=== PATIENT | male | born 1935 | race Caucasian/White ===

== ENCOUNTER 2017-02-22 17:43 | Emergency (ER) | payer MEDICARE, OTHER ==
--- NOTE | 2017-02-22 18:30 | EDM.PDOC ---
ED HPI GENERAL MEDICAL PROBLEM - General Chief Complaint: Head Injury Stated Complaint: LACERATION TO FOREHEAD Time Seen by Provider: 02/22/17 18:00 Source of Information: Reports: Patient, [facility] Records History Limitations: Reports: No Limitations - History of Present Illness INITIAL COMMENTS - FREE TEXT/NARRATIVE: 81 YO WM presents to ER from custodial after a fall from a seated position. Pt was in a lift chair and while it was raising up, he fell forward landing on his face. Pt complaining of nasal pain and a 2cm vertical laceration to his mid forehead. Pt denies any headache or neck pain. Pt denies any other injury. caregiver denies loss of consciousness and fall was witnessed. Onset: Today Onset Date: 02/22/17 Onset Time: 17:00 Duration: Hour(s): (1) Location: Reports: Head, Face. Denies: Neck Quality: Reports: Ache Severity: Mild Improves with: Reports: None Worsens with: Reports: None Associated Symptoms: Reports: No Other Symptoms - Related Data Allergies Allergy/AdvReac Type Severity Reaction Status Date / Time No Known Drug Allergies Allergy Cannot Verified 08/24/16 13:33 Remember Home Meds: Home Meds Carbidopa/Levodopa [Carbidopa-Levodopa 25-100 Tab] 1 each PO QID 12/18/13 [ History] Tamsulosin [Flomax] 0.8 mg PO PCBRK #90 cap.er 10/12/14 [Rx] Multivitamin W/Iron, Minerals [Spectravite Senior] 1 tab PO DAILY 11/30/14 [ History] Sertraline [Zoloft] 75 mg PO DAILY 11/30/14 [History] Get Ointment 1 applic TOP BID PRN 12/15/14 [History] Sennosides/Docusate Sodium [Senna S Tablet] 1 each PO BID 12/15/14 [History] Acetaminophen 325 - 650 mg PO Q4HR PRN 03/18/15 [History] Nystatin 1 applic TOP DAILY 03/18/15 [History] Past Medical History Other Genitourinary History: supra pubic catheter Social & Family History - Tobacco Use Smoking Status *Q: Never Smoker Second Hand Smoke Exposure: No - Alcohol Use Days Per Week of Alcohol Use: 0 - Recreational Drug Use Recreational Drug Use: No ED ROS GENERAL - Review of Systems Review Of Systems: See Below Constitutional: Reports: No Symptoms HEENT: Reports: Nose Pain Respiratory: Reports: No Symptoms Cardiovascular: Reports: No Symptoms Endocrine: Reports: No Symptoms GI/Abdominal: Reports: No Symptoms : Reports: No Symptoms Musculoskeletal: Reports: No Symptoms Skin: Reports: Wound (mid forehead 2cm vertical laceration) Neurological: Reports: No Symptoms Psychiatric: Reports: No Symptoms Hematologic/Lymphatic: Reports: No Symptoms Immunologic: Reports: No Symptoms ED EXAM, HEAD INJURY - Physical Exam Exam: See Below Exam Limited By: No Limitations General Appearance: Alert, WD/WN, No Apparent Distress Head: Normocephalic, Facial Lacerations (2cm vertical mid forehead laceration). No: Scalp Lacerations, Scalp Abrasions, Scalp Ecchymosis Nexus Criteria: No: Posterior, Midline Cervical Tenderness, Evidence of Intoxication, Altered Level of Consciousness, Focal Neurological Deficit, Painful Distraction Injuries Ears: Normal External Exam, Normal Canal, Hearing Grossly Normal, Normal TMs Nose: Nasal Swelling, Nasal Tenderness. No: Nasal Deformity, Nasal Discharge, Nasal Ecchymosis, Active Bleeding Throat/Mouth: Normal Inspection, Normal Lips, Normal Teeth, Normal Gums, Normal Oropharynx, Normal Voice, No Airway Compromise Neck: Non-Tender, Full Range of Motion, Normal Alignment, Normal Inspection Respiratory: No Respiratory Distress, Lungs Clear, Normal Breath Sounds, No Accessory Muscle Use, Chest Non-Tender Cardiovascular: Normal Peripheral Pulses, Regular Rate, Rhythm, No Edema, No Gallop, No JVD, No Murmur, No Rub Back Exam: Full Range of Motion, Normal Inspection, NT Extremities: No Evidence of Injury, Normal Range of Motion, Non-Tender, No Pedal Edema Neurologic: mainframe systems administrator II-XII nml As Tested, No Motor/Sensory Deficits, Alert, Oriented x 3, Depressed Affect - [place] Coma Score Best Eye Response (Riccardo): (4) Open Spontaneously Best Verbal Response ([place]): (5) Oriented Best Motor Response ([place]): (6) Obeys Commands ED LACERATION/WOUND & CATHERINE PROC - Laceration/Wound Repair Middle Forehead Lac/wound length in cm: 2 Appearance: Superficial, Clean Distal NVT: Neuro & Vascular Intact Skin Prep: Providone-Iodine (Betadine), Saline Closed with: Dermabond Sterile Dressing Applied: None Tetanus Status Addressed: Yes Complications: No Course - Orders/Labs/Meds Orders: Active Orders 24 hr Category Date Time Status Skin Adhesive [RC] STAT Care 02/22/17 18:31 Ordered Head wo Cont [CT] Routine Exams 02/22/17 Taken Nasal Bone Min 3V [CR] Stat Exams 02/22/17 18:29 Ordered - Radiology Interpretation Free Text/Narrative:: nasal series- nondisplaced nasal bone fracture ct head- NAD Departure - Departure Time of Disposition: 19:15 Disposition: Home, Self-Care 01 Condition: good Clinical Impression: Head injury Qualifiers: Encounter type: initial encounter Qualified Code(s): S09.90XA - Unspecified injury of head, initial encounter Nasal bone fracture Qualifiers: Encounter type: initial encounter Fracture type: closed Qualified Code(s): S02.2XXA - Fracture of nasal bones, initial encounter for closed fracture Facial laceration Qualifiers: Encounter type: initial encounter Qualified Code(s): S01.81XA - Laceration without foreign body of other part of head, initial encounter - Discharge Information Instructions: Stitches, [place], or Adhesive Wound Closure, [id number], Laceration Care, Adult, [id number], Head Injury, Adult, Nasal Fracture Referrals: Hui Amezcua MD [Primary Care Provider] - - My Orders Last 24 Hours: My Active Orders 02/22/17 Head wo Cont [CT] Routine 02/22/17 18:29 Nasal Bone Min 3V [CR] Stat 02/22/17 18:31 Skin Adhesive [RC] STAT - Assessment/Plan Last 24 Hours: My Active Orders 02/22/17 Head wo Cont [CT] Routine 02/22/17 18:29 Nasal Bone Min 3V [CR] Stat 02/22/17 18:31 Skin Adhesive [RC] STAT Assessment:: 1. fall at home with risk for falls due to Parkinson's 2. 2cm forehead laceration 3. minor head injury 4. nasal bone injury Plan: 1. discharge home/custodial 2. dermabond to forehead laceration- given wound care instructions 3. nasal bone injury- follow up with PCP for further evaluation and treatment- ice, avoid additional trauma to nose 4. given head injury precautions 5. return to ER for worsening symptoms
[2017-02-22 19:46] VITALS: BP 166/65
== END 2017-02-22 19:30 | disposition home or self-care (01) ==
LOC: KA.ED 17:43
DX: S02.2XXA Fracture of nasal bones, initial encounter for closed fracture (principal); S01.81XA Laceration without foreign body of other part of head, initial encounter; W19.XXXA Unspecified fall, initial encounter; Y92.129 Unspecified place in nursing home as the place of occurrence of the external cause; Z79.899 Other long term (current) drug therapy
CPT/HCPCS: 12011; 70160; 70450; 99283; 99284

== ENCOUNTER 2017-09-26 11:53 | Emergency (ER) | payer MEDICARE, OTHER ==
--- NOTE | 2017-09-26 12:10 | EDM.PDOC ---
ED HPI GENERAL MEDICAL PROBLEM - General Chief Complaint: Head Injury Stated Complaint: LACERATION TO RIGHT EAR FOLLOWING FALL Time Seen by Provider: 09/26/17 12:04 Source of Information: Reports: Patient History Limitations: Reports: No Limitations - History of Present Illness Onset: Today, Sudden Onset Date: 09/26/17 Onset Time: 10:40 Location: Reports: Head Quality: Reports: Ache Severity: Mild Improves with: Reports: None Worsens with: Reports: None Context: Reports: Trauma Associated Symptoms: Reports: Other (NECK PAIN) - Related Data Allergies Allergy/AdvReac Type Severity Reaction Status Date / Time No Known Drug Allergies Allergy Cannot Verified 09/26/17 12:15 Remember Home Meds: Home Meds Carbidopa/Levodopa [Carbidopa-Levodopa 25-100 Tab] 1 each PO QID 12/18/13 [ History] Multivitamin W/Iron, Minerals [Spectravite Senior] 1 tab PO DAILY 11/30/14 [ History] Sertraline [Zoloft] 100 mg PO DAILY 11/30/14 [History] Get Ointment 1 applic TOP BID PRN 12/15/14 [History] Sennosides/Docusate Sodium [Senna S Tablet] 1 each PO BID 12/15/14 [History] Acetaminophen 325 - 650 mg PO Q4HR PRN 03/18/15 [History] Nystatin 1 applic TOP TID PRN 03/18/15 [History] Acetaminophen [Tylenol] 650 mg PO Q4HR PRN 02/22/17 [History] Dextromethorphan/guaiFENesin [Mucinex DM ER 600-30 MG] 1 tab PO Q12HR PRN [History] Donepezil HCl [Aricept] 10 mg PO DAILY 02/22/17 [History] guaiFEN/Phenyleph/Acetaminophn [Tylenol Sinus Severe Caplet] 1 tab PO Q6HR PRN 02/22/17 [History] Past Medical History Other Genitourinary History: supra pubic catheter Social & Family History - Tobacco Use Smoking Status *Q: Never Smoker Second Hand Smoke Exposure: No - Alcohol Use Days Per Week of Alcohol Use: 0 - Recreational Drug Use Recreational Drug Use: No ED ROS GENERAL - Review of Systems Review Of Systems: ROS reveals no pertinent complaints other than HPI. Constitutional: Reports: No Symptoms HEENT: Reports: No Symptoms Respiratory: Reports: No Symptoms Cardiovascular: Reports: No Symptoms Endocrine: Reports: No Symptoms GI/Abdominal: Reports: No Symptoms : Reports: No Symptoms Musculoskeletal: Reports: No Symptoms Skin: Reports: Wound (RIGHT EAR LACERATION) Neurological: Reports: No Symptoms, Other (BASELINE DEMENTIA) Psychiatric: Reports: Confusion Hematologic/Lymphatic: Reports: No Symptoms Immunologic: Reports: No Symptoms ED EXAM, HEAD INJURY - Physical Exam Exam: See Below Exam Limited By: No Limitations General Appearance: Alert, WD/WN, No Apparent Distress Head: Other (RIGHT EAR LACERATION) Nexus Criteria: No: Posterior, Midline Cervical Tenderness, Evidence of Intoxication, Altered Level of Consciousness, Focal Neurological Deficit, Painful Distraction Injuries Eyes: Bilateral Eye: Normal Inspection Ears: Normal Canal, Normal TMs, Mastoid Tenderness Nose: Normal Inspection, No Blood Throat/Mouth: Normal Inspection, Normal Oropharynx, No Airway Compromise Neck: Limited Range of Motion (OF CHRONIC NATURE), Tender Lateral Respiratory: No Respiratory Distress, Lungs Clear Cardiovascular: Regular Rate, Rhythm Back Exam: Normal Inspection Extremities: Normal Inspection Neurologic: Normal Mood/Affect Skin: Normal Color, Warm/Dry - [place] Coma Score Best Eye Response (Riccardo): (4) Open Spontaneously Best Verbal Response ([place]cardo): (4) Confused Conversation Best Motor Response ([place]): (6) Obeys Commands ED LACERATION/WOUND & CATHERINE PROC - Laceration/Wound Repair Right Ear Lac/wound length in cm: 6 Appearance: Subcutaneous Distal NVT: Neuro & Vascular Intact Anesthetic Type: Local Local Anesthesia - Lidocaine (Xylocaine): 1% Plain Local Anesthetic Volume: 3cc Skin Prep: Providone-Iodine (Betadine) Closed with: Sutures Suture Size: 4-0 Suture Type: Nylon, Interrupted Suture Size: 4-0 Repaired with: Vicryl Course - Vital Signs Last Recorded V/S: Last Vital Signs Temp 98.8 F 09/26/17 12:26 Pulse 70 09/26/17 12:26 Resp 18 09/26/17 12:26 BP 160/73 H 09/26/17 12:26 Pulse Ox - Orders/Labs/Meds Orders: Active Orders 24 hr Category Date Time Status Vaccines to be Administered [RC] PER UNIT ROUTINE Care 09/26/17 12:05 Active Cervical Spine wo Cont [CT] Stat Exams 09/26/17 12:04 Taken Meds: Medications Discontinued Medications Generic Name Dose Route Start Last Admin Trade Name Hong PRN Reason Stop Dose Admin Diphtheria/Tetanus/Acell Pertussis 0.5 ml 09/26/17 12:04 09/26/17 13:08 Adacel IM 09/26/17 12:05 0.5 ml .ONCE ONE Administration Lidocaine HCl 5 ml 09/26/17 12:05 09/26/17 13:12 Xylocaine-Mpf 1% INJECT 09/26/17 12:06 5 ml ONETIME ONE Administration Neomycin/Polymyxin/Bacitracin Confirm 09/26/17 13:46 Triple Antibiotic Oint Administered 09/26/17 13:47 Dose 1 each .ROUTE .[facility] ONE - Radiology Interpretation Free Text/Narrative:: CT CERVICAL SPINE AND MASTOID SHOWED NO ACUTE FRACTURE. CT Results Date: 09/26/17 - Re-Assessments/Exams Free Text/Narrative Re-Assessment/Exam: 09/26/17 13:50 PATIENT AFEBRILE, NONTOXIC APPEARING, VITAL SIGNS STABLE. TOLERATED PROCEDURE WELL. STAFF FROM NURSING FACILITY WILL TRANSPORT PATIENT Departure - Departure Time of Disposition: 13:52 Disposition: Home, Self-Care 01 Condition: Good Clinical Impression: Laceration of auricle of right ear - Discharge Information Instructions: Head Injury, Adult, [id number], Laceration Care, Adult Referrals: Hui Amezcua MD [Primary Care Provider] - Forms: ED Department Discharge Additional Instructions: SUTURES TO BE REMOVED IN 10 DAYS. RETURN TO EMERGENCY DEPARTMENT SOONER IF SYMPTOMS WORSEN. - My Orders Last 24 Hours: My Active Orders 09/26/17 12:04 Cervical Spine wo Cont [CT] Stat 09/26/17 12:05 Vaccines to be Administered [RC] PER UNIT ROUTINE - Assessment/Plan Last 24 Hours: My Active Orders 09/26/17 12:04 Cervical Spine wo Cont [CT] Stat 09/26/17 12:05 Vaccines to be Administered [RC] PER UNIT ROUTINE Assessment:: RIGHT EAR LACERATION REPAIR Plan: SUTURES TO BE REMOVED IN 10 DAYS
[2017-09-26 12:48] VITALS: BP 160/73
[2017-09-26] MEDS: Diphtheria,Pertussis(Acell),Tetanus Vaccine 0.5 ML SDV IM ONE (13:08)
[2017-09-26] MEDS: Bacitracin/Neomycin/Polymyxin B Oint 0.9 GM U/D Packet TOP ONE (13:55)
[2017-09-26] MEDS: Bacitracin/Neomycin/Polymyxin B Oint 0.9 GM U/D Packet ONE (14:02)
== END 2017-09-26 14:00 | disposition home or self-care (01) ==
LOC: KA.ED 11:53
DX: S01.311A Laceration without foreign body of right ear, initial encounter (principal); Z23 Encounter for immunization; W17.89XA Other fall from one level to another, initial encounter
CPT/HCPCS: 12011; 12014; 72125; 90471; 90715; 99283; 99284

== ENCOUNTER 2019-03-10 21:50 | Emergency (ER) | payer MEDICARE, OTHER ==
--- NOTE | 2019-03-10 22:37 | EDM.PDOC ---
ED HPI GENERAL MEDICAL PROBLEM - General Chief Complaint: General Stated Complaint: SUPRAPUBIC CATHETER PLACEMENT Time Seen by Provider: 03/10/19 22:00 Source of Information: Reports: Long-Term Records, Other (caregiver) History Limitations: Reports: Other (Advanced dementia) - History of Present Illness INITIAL COMMENTS - FREE TEXT/NARRATIVE: 83 YO WM presents to ER with caregiver secondary to a malfunctioning suprapubic catheter. assisted reports catheter was last changed 3 weeks ago. Pt without complaints and resting comfortably in exam room. Caregiver denies fever/ chills, nausea/vomiting or change in patients behavior. Onset: Unknown/Unsure Improves with: Reports: None Worsens with: Reports: None Associated Symptoms: Reports: No Other Symptoms - Related Data Allergies Allergy/AdvReac Type Severity Reaction Status Date / Time No Known Drug Allergies Allergy Cannot Verified 09/26/17 12:15 Remember Home Meds: Home Meds Carbidopa/Levodopa [Carbidopa-Levodopa 25-100 Tab] 1 each PO QID 12/18/13 [ History] Multivit with Iron,Minerals [Spectravite Senior] 1 tab PO DAILY 11/30/14 [ History] Sertraline [Zoloft] 100 mg PO DAILY 11/30/14 [History] Get Ointment 1 applic TOP BID PRN 12/15/14 [History] Sennosides/Docusate Sodium [Senna-S Tablet] 1 each PO BID 12/15/14 [History] Nystatin 1 applic TOP TID PRN 03/18/15 [History] Acetaminophen [Tylenol] 650 mg PO Q4HR PRN 02/22/17 [History] Dextromethorphan/guaiFENesin [Mucinex DM ER 600-30 MG] 1 tab PO Q12HR PRN [History] Donepezil HCl [Aricept] 10 mg PO DAILY 02/22/17 [History] guaiFEN/Phenyleph/Acetaminophn [Tylenol Sinus Severe Caplet] 1 tab PO Q6HR PRN 02/22/17 [History] Cephalexin [Keflex] 500 mg PO TID #21 cap 09/26/17 [Rx] Past Medical History HEENT History: Reports: Other (See Below) Other HEENT History: Ear Laceration- reason for visit today Genitourinary History: Reports: Retention, Urinary Other Genitourinary History: supra pubic catheter Musculoskeletal History: Reports: Osteoarthritis Neurological History: Reports: Parkinson's Psychiatric History: Reports: Dementia - Infectious Disease History Infectious Disease History: Reports: MRSA - Past Surgical History HEENT Surgical History: Reports: None Social & Family History - Family History Family Medical History: Noncontributory - Caffeine Use Caffeine Use: Reports: Coffee ED ROS GENERAL - Review of Systems Review Of Systems: See Below Constitutional: Reports: No Symptoms HEENT: Reports: No Symptoms Respiratory: Reports: No Symptoms Cardiovascular: Reports: No Symptoms Endocrine: Reports: No Symptoms GI/Abdominal: Reports: No Symptoms Skin: Reports: No Symptoms Hematologic/Lymphatic: Reports: No Symptoms Immunologic: Reports: No Symptoms ED EXAM, GENERAL - Physical Exam Exam: See Below Exam Limited By: Other (advanced dementia) Eye Exam: Bilateral Eye: PERRL Nose: Normal Inspection, Normal Mucosa, No Blood Throat/Mouth: Normal Inspection, Normal Lips, Normal Teeth, Normal Gums, Normal Oropharynx, Normal Voice, No Airway Compromise Head: Atraumatic, Normocephalic Neck: Normal Inspection, Supple, Non-Tender, Full Range of Motion Respiratory/Chest: No Respiratory Distress, Lungs Clear, Normal Breath Sounds, No Accessory Muscle Use, Chest Non-Tender Cardiovascular: Normal Peripheral Pulses, Regular Rate, Rhythm, No Edema, No Gallop, No JVD, No Murmur, No Rub GI/Abdominal: Normal Bowel Sounds, Soft, Non-Tender, No Organomegaly, No Distention, No Abnormal Bruit, No Mass Back Exam: Normal Inspection, Full Range of Motion, NT Extremities: Normal Inspection, Normal Range of Motion, Non-Tender, Normal Capillary Refill, No Pedal Edema Neurological: Alert, CN II-XII Intact Psychiatric: Flat Affect Skin Exam: Warm, Dry, Intact, Normal Color, No Rash Lymphatic: No Adenopathy ED GENERAL MEDICAL PROCEDURES - Additional/Other Procedure(s) Other (Free Text) Procedure(s): Suprapubic catheter replacement- Area clean/prepped/draped in sterile fashion. 10cc syringe used to deflate catheter. 16F suprapubic catheter replaced without complications. Pt tolerated procedure well and 150cc of yellow nonodorous urine drained. Urine sent for culture and sensitivities. Departure - Departure Time of Disposition: 22:42 Disposition: DC/Tfer to [facility] Condition: Good Clinical Impression: Suprapubic catheter dysfunction Qualifiers: Encounter type: initial encounter Qualified Code(s): T83.010A - Breakdown ( mechanical) of cystostomy catheter, initial encounter - Discharge Information Instructions: Suprapubic Catheter Replacement Referrals: Fatou Amezcua MD [Primary Care Provider] - Forms: ED Department Discharge Additional Instructions: 1. discharge back to correction 2. suprapubic catheter 16F replaced without complications 3. urinalysis with culture and sensitivity results to Dr Gauthier[facility] 4. return to ER for worsening symptoms 5. follow up with [facility] in 48-72 hours for urinalysis results - Assessment/Plan Assessment:: 1. suprapubic catheter replacement Plan: 1. discharge back to correction 2. suprapubic catheter 16F replaced without complications 3. urinalysis with culture and sensitivity results to Dr Gauthier/[facility] 4. return to ER for worsening symptoms 5. follow up with [facility] in 48-72 hours for urinalysis results
[2019-03-10 23:10] VITALS: BP 118/50
== END 2019-03-10 22:30 ==
LOC: KA.ED 21:50
DX: T83.010A Breakdown (mechanical) of cystostomy catheter, initial encounter (principal); I10 Essential (primary) hypertension; Z79.899 Other long term (current) drug therapy
CPT/HCPCS: 51705; 81001; 99283; 99284; C2627